=== PATIENT | female | born 1995 | race Caucasian/White ===

== ENCOUNTER 2017-04-20 21:15 | Emergency (ER) | payer OTHER ==
[2017-04-20 22:15] VITALS: BP 123/76
== END 2017-04-20 22:15 | disposition home or self-care (01) ==
LOC: ED 21:15
DX: S09.8XXA Other specified injuries of head, initial encounter (principal); W18.30XA Fall on same level, unspecified, initial encounter; Y93.89 Activity, other specified; Y99.8 Other external cause status; Y92.89 Other specified places as the place of occurrence of the external cause